=== PATIENT | male | born 1975 | race African-American/Black ===

== ENCOUNTER 2022-07-26 13:27 | Emergency (ER) | payer SELFPAY ==
[~2022-07-26] VITALS: Ht 182.9 cm; Wt 100.0 kg
[2022-07-26 13:33] VITALS: BP 106/70
[2022-07-26] MEDS ORDERED: NALO4SPR BOTHNSTRLS (17:48)
== END 2022-07-26 17:53 | disposition home or self-care (01) ==
LOC: EDBD 13:27 → ER 13:47
DX: R41.82 Altered mental status, unspecified (principal); Z59.00 Homelessness unspecified
CPT/HCPCS: 99283